=== PATIENT | female | born 1945 | race Caucasian/White ===

== ENCOUNTER → 2017-07-05 | Outpatient (CLI) | payer MEDICARE, OTHER ==
[~2017-07-05] MED LIST: ASP81CT PO; ATRV10T PO; CETI10CA PO; CIPR250S2 PO; HYDR-707 PO; HYDR1TAB66 PO; IBP600T1 PO; LISI10TA PO; LOSA25TA5 PO; METO25TA2 PO; PNT40TEC PO
[2017-07-05 09:05] LABS: ALANINE AMINOTRANSFERASE 15 U/L (0-55); ANION GAP 8 MMOL/L (5-14); ASPARTATE AMINO TRANSFERASE 20 U/L (5-34); BILIRUBIN,TOTAL 0.5 MG/DL (0.1-1.0); BLOOD UREA NITROGEN 14 MG/DL (7-18); BUN/CREATININE RATIO 16; CALCIUM 9.6 MG/DL (8.5-10.1); CARBON DIOXIDE 26 MMOL/L (21-32); CHLORIDE 106 MMOL/L (98-107); CHOLESTEROL 207 MG/DL (< 200); DIRECT LDL 117 MG/DL (1-129); GFR ESTIMATED > 60; GLUCOSE 89 MG/DL (70-105); SODIUM 140 MMOL/L (135-145); TOTAL PROTEIN 7.9 GM/DL (6.4-8.2); TRIGLYCERIDES 51 MG/DL (<150); VLDL CHOLESTEROL 10 MG/DL (5-40)
[2017-07-05 09:25] LABS: THYROID STIMULATING HORMONE 2.07 UIU/ML (0.35-4.94)
== END ==
LOC: LAB 08:22
PROVIDERS: ATTEND Internal Medicine Cardiovascular Disease
DX: E78.4 Other hyperlipidemia (principal); R03.0 Elevated blood-pressure reading, without diagnosis of hypertension; I65.23 Occlusion and stenosis of bilateral carotid arteries
CPT/HCPCS: 36415; 80053; 80061; 84443

== ENCOUNTER → 2018-02-01 | Outpatient (CLI) | payer MEDICARE, OTHER | LOC: RT 12:59 | PROVIDERS: ATTEND Internal Medicine Cardiovascular Disease | DX: R00.2 Palpitations (principal); R23.0 Cyanosis; I10 Essential (primary) hypertension; E78.5 Hyperlipidemia, unspecified; R55 Syncope and collapse | CPT/HCPCS: 94060; 94726; 94729 ==

== ENCOUNTER → 2018-02-24 | Outpatient (CLI) | payer MEDICARE, OTHER ==
[2018-02-24 11:59] LABS: ABG BASE EXCESS -2.5 MMOL/L (-2.5-2.5); ABG OXYGEN SATURATION 97 % (94-100); ABG PCO2 31 MMHG (35-45); ABG PH 7.44 (7.37-7.43); ABG PO2 91 MMHG (79-93)
[2018-02-24 12:00] LABS: ALLENS TEST YES-POS; INSPIRED O2 RA; VENTILATOR NO
[2018-02-24 12:01] LABS: PATIENT TEMP 97.6
== END ==
LOC: CARD 11:30
PROVIDERS: ATTEND Internal Medicine Cardiovascular Disease
DX: I10 Essential (primary) hypertension (principal); R00.2 Palpitations; R23.0 Cyanosis; I77.89 Other specified disorders of arteries and arterioles; E78.5 Hyperlipidemia, unspecified; R03.0 Elevated blood-pressure reading, without diagnosis of hypertension; R55 Syncope and collapse; I34.0 Nonrheumatic mitral (valve) insufficiency
CPT/HCPCS: 36600; 82805; 93306